=== PATIENT | male | born 1975 | race American Indian/Alaskan Native ===

== ENCOUNTER 2016-08-10 18:55 | Emergency (ER) | payer OTHER ==
[2016-08-10 19:19] VITALS: TEMP 99
[2016-08-10 19:41] VITALS: BP 123/85; PULSE 99; RESP 16; O2SAT 98
[2016-08-10] MEDS ORDERED: Tmp-Smz 800 mg-160 mg DS Tab PO STA (19:44)
--- NOTE | 2016-08-10 19:44 | ED PDOC ---
Arrival/HPI - General Chief Complaint: Abnormal Skin Integrity Time Seen by Provider: 08/10/16 19:44 Historian: Patient - History of Present Illness Narrative History of Present Illness (Text): 08/10/16 19:44 This 41 yo male with pmh DM, presents to this ED c/o chin abscess x 2 days. Patent denies drainage, redness, fever, or ANDREWS. Denies other complains. Time/Duration: Other (2 days) Context: Home Past Medical History - Provider Review Nursing Documentation Reviewed: Yes - Infectious Disease Hx of Infectious Diseases: None - Endocrine/Metabolic Hx Diabetes Mellitus Type 2: Yes - Psychiatric Hx Substance Use: No - Anesthesia Hx Anesthesia: No Hx Anesthesia Reactions: No Hx Malignant Hyperthermia: No Family/Social History - Physician Review Nursing Documentation Reviewed: Yes Family/Social History: No Known Family HX Smoking Status: Never Smoked Hx Alcohol Use: Yes Frequency of alcohol use: Socially Hx Substance Use: No Allergies/Home Meds Allergies/Adverse Reactions: Allergies No Known Allergies Allergy (Verified 08/10/16 19:19) Home Medications: Home Meds Medication Instructions Recorded Confirmed glyBURIDE [Glyburide] 5 mg PO DAILY 08/10/16 08/10/16 Review of Systems - Review of Systems Constitutional: Normal. absent: Fatigue, Weight Change, Fevers Eyes: Normal ENT: Normal Respiratory: Normal Cardiovascular: Normal Gastrointestinal: Normal Genitourinary Male: Normal Musculoskeletal: Normal Skin: Abscess (chin) Neurological: Normal Endocrine: Normal Hemo/Lymphatic: Normal Psychiatric: Normal Physical Exam Vital Signs Temp Pulse Resp BP Pulse Ox 08/10/16 20:13 16 98 08/10/16 19:30 99 H 16 98 08/10/16 19:14 99 F 100 H 20 123/85 100 Temperature: Afebrile Blood Pressure: Normal Pulse: Regular Respiratory Rate: Normal Appearance: Positive for: Well-Appearing, Non-Toxic, Comfortable Pain Distress: None Mental Status: Positive for: Alert and Oriented X 3 - Systems Exam Head: Present: Atraumatic, Normocephalic Pupils: Present: PERRL Extroacular Muscles: Present: EOMI Conjunctiva: Present: Normal Mouth: Present: Moist Mucous Membranes Neck: Present: Normal Range of Motion Respiratory/Chest: Present: Clear to Auscultation, Good Air Exchange. No: Respiratory Distress, Accessory Muscle Use Cardiovascular: Present: Regular Rate and Rhythm, Normal S1, S2. No: Murmurs Abdomen: Present: Normal Bowel Sounds. No: Tenderness, Distention, Peritoneal Signs Back: Present: Normal Inspection Upper Extremity: Present: Normal Inspection. No: Cyanosis, Edema Lower Extremity: Present: Normal Inspection. No: Edema Neurological: Present: GCS=15, CN II-XII Intact, Speech Normal Skin: Present: Warm, Dry, Normal Color, Abscess ((+) pustule like abscess, with mild surrounding erythema. No fluctuance, or drainage. No lymph nodes tenderness). No: Rashes Psychiatric: Present: Alert, Oriented x 3, Normal Insight, Normal Concentration Medical Decision Making ED Course and Treatment: 08/10/16 20:00 Re-evaluation. Patient feels better. Discussed results and plan with patient who expresses understanding. All questions answered and there is agreement with the plan to discharge home with instructions. Patient stable for discharge. Return if symptoms persist or worsen Re-evaluation Time: 20:00 Reassessment Condition: Re-examined, Improved - Medication Orders Current Medication Orders: Discontinued Medications Amoxicillin/Clavulanate Potassium (Augmentin 875 Mg-125 Mg Tab) 1 tab PO STAT STA PRN Reason: Protocol Stop: 08/10/16 19:46 Last Admin: 08/10/16 20:12 Dose: 1 TAB Trimethoprim/Sulfamethoxazole (Bactrim Ds Tab) 1 tab PO STAT STA PRN Reason: Protocol Stop: 08/10/16 19:45 Last Admin: 08/10/16 20:12 Dose: 1 TAB - Procedure PROCEDURE NOTE (Text): 08/10/16 20:11 PROCEDURE: INCISION & DRAINAGE Performed by the emergency provider Indication: Abscess Location: chin Preparation: The area was prepped and draped in the usual sterile fashion and was cleansed with Betadine. Local infiltration of Lidocaine 1% without Epi was used for anesthesia. Procedure: The small pustule abscess was incised with a needle. Approximately trace of purulent material was obtained. A dressing was applied by the RN. Post-Procedure: On exam the abscess is notably less pustule. The patient tolerated the procedure well, and there were no complications. Disposition/Present on Arrival - Present on Arrival Any Indicators Present on Arrival: No History of DVT/PE: No History of Uncontrolled Diabetes: No Urinary Catheter: No History of Decub. Ulcer: No History Surgical Site Infection Following: None - Disposition Have Diagnosis and Disposition been Completed?: Yes Diagnosis: Abscess of chin Disposition: HOME/ ROUTINE Disposition Time: 20:01 Patient Plan: Discharge Condition: GOOD Discharge Instructions (ExitCare): Abscess (ED) Additional Instructions: Call private doctor for follow up visit in 2 days. Continue with warmth compress every 1-2 hours. Take medication as instructed. Return to emergency if symptoms worsen or unable to see your doctor in 2 days. Prescriptions: Amoxicillin/Clavulanate [Augmentin 875 MG-125 MG] 1 tab PO BID #14 tab Sulfamethoxazole/Trimethoprim [Bactrim DS 800 mg-160 mg] 1 tab PO BID #14 tab Referrals: Montana Miller PA [Primary Care Provider] - Follow up with primary Forms: WORK NOTE
[2016-08-10] MEDS ORDERED: Amoxicillin-Clav 875-125 mg Tab PO STA (19:45)
== END 2016-08-10 20:13 | disposition home or self-care (01) ==
LOC: ED 18:55
DX: L02.01 Cutaneous abscess of face (principal)

== ENCOUNTER 2016-08-13 20:33 | Inpatient (IN) | payer OTHER ==
[2016-08-13 20:53] VITALS: BMI 22.7
[2016-08-13] MEDS ORDERED: Sodium Chloride 0.9% 1,000 ML IV STA (21:25)
--- NOTE | 2016-08-13 21:39 | ED PDOC ---
Arrival/HPI <Boubacar Reynolds - Last Filed: 08/13/16 22:17> - General Historian: Patient - History of Present Illness Time/Duration: Other (few days) Symptom Onset: Gradual Symptom Course: Worsening Activities at Onset: Light Context: Home <Judy Blair - Last Filed: 08/13/16 22:51> - General Chief Complaint: Abnormal Skin Integrity Time Seen by Provider: 08/13/16 21:24 - History of Present Illness Narrative History of Present Illness (Text): 08/13/16 21:24 41 year old male, whose past medical history includes NIDDM, who presents to the ED complaining of a worsening chin abscess today. Patient states he was seen in the ED 4 days prior for a chin abscess, discharged home with Bactrim and Augmentin. Patient states he has been taking antibiotics as prescribed but noted today chin abscess has worsened and is now spreading to the right. Patient also reports associated purulent, bloody discharge that started today. Patient states he has been taking Aleve for pain. Patient notes he has been taking his blood sugars regularly at home, highest was 250. Pt states he has been having subjective fevers and chills at home but did not take his temperature. Patient denies any headache, dizziness, neck pain, back pain, nausea, vomiting, diarrhea, urinary symptoms, or any other complaints. (Judy Blair) Past Medical History - Provider Review Nursing Documentation Reviewed: Yes - Travel History Have you recently traveled outside [place] w/in the past 3 mons?: No - Infectious Disease Hx of Infectious Diseases: None - Tetanus Immunization Tetanus Immunization: Unknown - Endocrine/Metabolic Hx Diabetes Mellitus Type 2: Yes - Psychiatric Hx Substance Use: No - Anesthesia Hx Anesthesia: No Hx Anesthesia Reactions: No Hx Malignant Hyperthermia: No <Judy Blair - Last Filed: 08/13/16 22:51> Family/Social History - Physician Review Nursing Documentation Reviewed: Yes Family/Social History: Unknown Family HX Smoking Status: Never Smoked Hx Alcohol Use: Yes Hx Substance Use: No <Judy Blair - Last Filed: 08/13/16 22:51> Allergies/Home Meds <Boubacar Reynolds - Last Filed: 08/13/16 22:17> <Judy Blair - Last Filed: 08/13/16 22:51> Allergies/Adverse Reactions: Allergies No Known Allergies Allergy (Verified 08/10/16 19:19) Home Medications: Home Meds Medication Instructions Recorded Confirmed glyBURIDE [Glyburide] 5 mg PO DAILY 08/10/16 08/10/16 Review of Systems - Physician Review All systems were reviewed & negative as marked: Yes - Review of Systems Constitutional: Fevers, Other (chills) Eyes: Normal ENT: Normal Respiratory: Normal. absent: SOB, Cough Cardiovascular: Normal. absent: Chest Pain Gastrointestinal: Normal. absent: Abdominal Pain, Diarrhea, Nausea, Vomiting Genitourinary Male: Normal. absent: Dysuria, Frequency, Hematuria, Urinary Output Changes Musculoskeletal: Normal. absent: Back Pain, Neck Pain Skin: Abscess (+chin abscess), Cellulitis Neurological: Normal. absent: Headache, Dizziness Endocrine: Normal Hemo/Lymphatic: Normal Psychiatric: Normal <Judy Blair T - Last Filed: 08/13/16 22:51> Physical Exam Vital Signs Reviewed: Yes Temperature: Afebrile Blood Pressure: Normal Pulse: Regular Respiratory Rate: Normal Appearance: Positive for: Well-Appearing, Non-Toxic, Comfortable Pain Distress: None Mental Status: Positive for: Alert and Oriented X 3 - Systems Exam Head: Present: Atraumatic, Normocephalic, Other (there is a large area of tenderness and induration and swelling noted to the chin into the right side of the jaw. there is a small amount of purulent discharge from the inferior aspect of the chin. + edema and induration extending to the right side of the jaw; + erythema; ) Pupils: Present: PERRL Extroacular Muscles: Present: EOMI Conjunctiva: Present: Normal Mouth: Present: Moist Mucous Membranes, Normal Lips (+ swelling to the right side of the lower lip. ), Normal Tounge, Normal Teeth, Other (no elevation of the floor of the mouth; no submandibular tenderness or swelling.). No: Drooling , Trismus Neck: Present: Normal Range of Motion, Trachea Midline Respiratory/Chest: Present: Clear to Auscultation, Good Air Exchange. No: Respiratory Distress, Accessory Muscle Use Cardiovascular: Present: Regular Rate and Rhythm, Normal S1, S2. No: Murmurs Abdomen: Present: Normal Bowel Sounds. No: Tenderness, Distention, Peritoneal Signs Back: Present: Normal Inspection Upper Extremity: Present: Normal Inspection. No: Cyanosis, Edema Lower Extremity: Present: Normal Inspection. No: Edema Neurological: Present: GCS=15, CN II-XII Intact, Speech Normal Skin: Present: Warm, Dry Psychiatric: Present: Alert, Oriented x 3, Normal Insight, Normal Concentration <Judy Blair Livan - Last Filed: 08/13/16 22:51> Vital Signs Temp Pulse Resp BP Pulse Ox 08/13/16 20:56 99 F 104 H 18 143/93 H 98 Medical Decision Making <Boubacar Reynolds - Last Filed: 08/13/16 22:17> - Lab Interpretations I have reviewed the lab results: Yes <Judy Blair - Last Filed: 08/13/16 22:51> ED Course and Treatment: 08/13/16 21:24 Impression: 41 year old male with a worsening chin abscess. Plan: -- Labs, blood cultures -- IV fluids -- Reassess and disposition Prior Visits: Notes and results from previous visits were reviewed. 08/13/16 22:37 CBC: Within normal limits CMP glucose 393 normal saline IV bolus given Blood cultures pending Vancomycin and Zosyn ordered IV case discussed with dr. perez; accepts admission case discussed with dr. hopkins; surgery resident who will see patient at bedside. pt admitted to med/surg for cellulitis/abscess of face with hyperglycemia, failure of outpatient abx. impression; cellulitis, abscess, hyperglycemia. admit to med/surg (Judy Blair) - Lab Interpretations Lab Results: 08/13/16 21:36 08/13/16 21:36 Lab Results 08/13/16 21:36: WBC 9.9, RBC 5.31, Hgb 14.7, Hct 42.5, MCV 80.0, MCH 27.7, MCHC 34.6, RDW 12.0, Plt Count 238, MPV 10.6, Gran % 72.0 H, Lymph % (Auto) 20.1 L, [place] % (Auto) 7.2 H, Eos % (Auto) 0.6 L, Baso % (Auto) 0.1, Gran # 7.13 H, Lymph # 2.0, [place] # 0.7 H, Eos # 0.1, Baso # 0.01, Sodium 133, Potassium 4.2, Chloride 91 L, Carbon Dioxide 29, Anion Gap 17, BUN 12, Creatinine 1.0, Est GFR ( Amer) > 60, Est GFR (Non-Af Amer) > 60, Random Glucose 393 H*, Calcium 9.6, Total Bilirubin 1.0, AST 44, ALT 75 H, Alkaline Phosphatase 188 H, Total Protein 9.0 H, Albumin 4.3, Globulin 4.8, Albumin/Globulin Ratio 0.9 L - Medication Orders Current Medication Orders: Sodium Chloride (Sodium Chloride 0.9%) 1,000 mls @ 999 mls/hr IV .Q1H1M STA Stop: 08/13/16 22:25 Last Admin: 08/13/16 21:42 Dose: 999 MLS/HR eMAR Start Stop Document 08/13/16 21:42 HI (Rec: 08/13/16 21:42 [id number]) Intravenous Solution Start Date 08/13/16 Start Time 21:42 Piperacillin Sod/Tazobactam Sod (Zosyn 3.375 In Ns 100ml) 100 mls @ 200 mls/hr IVPB STAT STA PRN Reason: Protocol Stop: 08/13/16 22:37 Last Admin: 08/13/16 22:18 Dose: 200 MLS/HR eMAR Start Stop Document 08/13/16 22:18 HI (Rec: 08/13/16 22:18 [id number]) Intravenous Solution Start Date 08/13/16 Start Time 22:18 Vancomycin HCl (Vancomycin 1gm) 250 mls @ 167 mls/hr IVPB STAT STA PRN Reason: Protocol Stop: 08/13/16 23:37 - PA / [employer]PERATOR HELPER / Resident Statement ALY has reviewed & agrees with the documentation as recorded. ALY has examined the patient and agrees with the treatment plan. <Boubacar Reynolds - Last Filed: 08/13/16 22:17> - Scribe Statement The provider has reviewed the documentation as recorded by the Scribe <Judy Blair - Last Filed: 08/13/16 22:51> - Scribe Statement Ainsley Alba All medical record entries made by the Scribe were at my direction and personally dictated by me. I have reviewed the chart and agree that the record accurately reflects my personal performance of the history, physical exam, medical decision making, and the department course for this patient. I have also personally directed, reviewed, and agree with the discharge instructions and disposition. (Judy Blair) Disposition/Present on Arrival <Boubacar Reynolds - Last Filed: 08/13/16 22:17> - Present on Arrival Any Indicators Present on Arrival: No History of DVT/PE: No History of Uncontrolled Diabetes: No Urinary Catheter: No History of Decub. Ulcer: No History Surgical Site Infection Following: None - Disposition Have Diagnosis and Disposition been Completed?: Yes Disposition Time: 22:34 Patient Plan: Admission <Judy Blair - Last Filed: 08/13/16 22:51> - Disposition Diagnosis: Abscess, Cellulitis Disposition: HOSPITALIZED Condition: FAIR Discharge Instructions (ExitCare): Cellulitis (ED)
[2016-08-13 21:48] LABS: ADD MANUAL DIFF? NO
[2016-08-13 22:04] LABS: ALB/GLOB RATIO 0.9 (1.1-1.8); ALKALINE PHOSPHATASE 188 U/L (38-133); ALT/SGPT 75 U/L (7-56); AST/SGOT 44 U/L (15-59); BLOOD UREA NITROGEN 12 mg/dL (7-21); CALCIUM 9.6 mg/dL (8.4-10.5); CARBON DIOXIDE 29 mmol/L (21-33); CHLORIDE 91 mmol/L (98-107); GFR AFRICAN-AMERICAN > 60; POTASSIUM 4.2 mmol/L (3.6-5.0); SODIUM 133 mmol/L (132-148)
[2016-08-13 22:07] LABS: GLUCOSE,RANDOM 393 mg/dL (70-110)
[2016-08-13] MEDS ORDERED: Vancomycin 1gm in NS 250ml 250 ML IVPB STA (22:08)
[2016-08-13] MEDS ORDERED: Piperacillin/Tazobact 3.375 gm 100 ML IVPB STA (22:08)
[2016-08-13 22:17] LABS: BASO # 0.01 K/mm3 (0.0-2.0); BASO % 0.1 % (0.0-3.0); EOS # 0.1 (0.0-0.7); EOS % 0.6 % (1.5-5.0); GRAN # 7.13 (1.4-6.5); HEMATOCRIT 42.5 % (42.0-52.0); LYMPH % 20.1 % (22.0-35.0); MEAN CORPUSCULAR HEMOGLOBIN 27.7 pg (25.0-35.0); MEAN CORPUSCULAR HGB CONC 34.6 g/dl (31.0-37.0); MEAN PLATELET VOLUME 10.6 fl (7.0-11.0); MONO # 0.7 (0.1-0.6); MONO % 7.2 % (1.0-6.0); PLATELET COUNT 238 10^3/uL (120.0-450.0); WHITE BLOOD COUNT 9.9 10^3/ul (4.5-11.0)
--- NOTE | 2016-08-14 00:10 | CP.PCM.CON ---
History of Present Illness - History of Present Illness History of Present Illness: General Surgery consult note for Dr. Vail Consult for: chin abscess Pt is a 41 M with PMH of DM2 currently poorly controlled who presents with worsening abscess of his chin. Pt first noticed swelling and pain on his chin 4- 5 days ago which gradually worsened until his skin became indurated and the pain became unbearable. He came to the ED 3 days ago and had a trace amount of purulent fluid needle aspirated and was discharged with PO Bactrim and augmentin. Patient says that the first day he only took 1 dose of each instead of the BID dose, but when he realized his mistake he took the BID dose for the past two days. Patient states that he has some sero-purulent drainage out of the needle aspiration site, but that the pain and swelling have worsened, with areas of swelling and pain spreading to the right of his face and up to his bottom lip and on the inside of his bottom lip. Patient denies any drainage from these other areas of swelling, any pain or swelling on the bottom of his mouth or in his throat, any difficulties breathing, or neck swelling. Patient states that he has felt warm at home with occasional chills but did not take his temperature. Denies any numbness or tingling anywhere, any difficulty moving his mouth or face, any shooting pains along his jaw, nausea, vomiting, chest pain, or SOB. Reports intermittent dull, unilateral headaches over the past few weeks, chronic poor vision secondary to diabetes, increased nocturia, intermittent cough at night, sinus congesion, and chronic diarrhea, though lately he has been constipated. Patient reports that 2 weeks ago he had a similar area of swelling and pain more laterally on his right jaw that resolved when he popped it on his own. 3 weeks ago patient had extensive dental work done with multiple filling placed in the lower teeth BL. Patient does not record his blood sugars at home and has an appointment with Dr. Fatmata Miller for a pump to control his blood sugars more closely. Afebrile, tachycardic with HR 104 WBC: wnl PMH: DM PSH: none All: NKDA Social: denies tobacco use, ETOH: 1 beer per night, denies drug use Review of Systems - Review of Systems All systems: reviewed and no additional remarkable complaints except - Constitutional Constitutional: As Per HPI - EENT Eyes: As Per HPI Ears: Decreased Hearing (chronic). absent: Ear Discharge, Disequilibrium Nose/Mouth/Throat: As Per HPI, Post Nasal Drip - Cardiovascular Cardiovascular: absent: Chest Pain, Irregular Heart Rhythm, Leg Edema, Palpitations - Respiratory Respiratory: As Per HPI. absent: Dyspnea, Dyspnea on Exertion - Gastrointestinal Gastrointestinal: As Per HPI - Genitourinary Genitourinary: As Per HPI, Nocturia. absent: Dysuria, Hematuria - Musculoskeletal Musculoskeletal: absent: Muscle Weakness, Numbness, Tingling - Integumentary Integumentary: As Per HPI - Neurological Neurological: As Per HPI Past Patient History - Infectious Disease Hx of Infectious Diseases: None - Tetanus Immunizations Tetanus Immunization: Unknown - Past Medical History & Family History Past Medical History?: Yes Past Family History: Reviewed and not pertinent - Past Social History Smoking Status: Never Smoked Alcohol: < 2 Drinks/Day (1 beer/PM) Drugs: Denies - ENDOCRINE/METABOLIC Hx Diabetes Mellitus Type 2: Yes - PSYCHIATRIC Hx Substance Use: No - ANESTHESIA Hx Anesthesia: No Hx Anesthesia Reactions: No Hx Malignant Hyperthermia: No Meds Allergies/Adverse Reactions: Allergies Allergy/AdvReac Type Severity Reaction Status Date / Time No Known Allergies Allergy Verified 08/10/16 19:19 Physical Exam - Constitutional Appears: Well, Non-toxic, No Acute Distress - Head Exam Head Exam: ATRAUMATIC, NORMOCEPHALIC - Eye Exam Eye Exam: EOMI, Normal appearance, PERRL Pupil Exam: NORMAL ACCOMODATION, PERRL - ENT Exam ENT Exam: Mucous Membranes Moist. absent: Normal Oropharynx (internal lower lip and extrenal gums on the right side of the lower jaw swollen, edematous, and boggy. No expressible drainage) - Neck Exam Neck exam: Positive for: Full Rom. Negative for: Lymphadenopathy Additional comments: No subglottal swelling, bogginess, or tenderness - Respiratory Exam Respiratory Exam: Clear to Auscultation Bilateral, NORMAL BREATHING PATTERN. absent: Accessory Muscle Use, Respiratory Distress - Cardiovascular Exam Cardiovascular Exam: RRR, +S1, +S2. absent: Systolic Murmur - GI/Abdominal Exam GI & Abdominal Exam: Soft. absent: Distended, Tenderness - Extremities Exam Extremities exam: Negative for: calf tenderness, pedal edema, tenderness - Back Exam Back exam: NORMAL INSPECTION - Neurological Exam Neurological exam: Alert, CN II-XII Intact, Oriented x3 - Psychiatric Exam Psychiatric exam: Normal Affect, Normal Mood - Skin Skin Exam: Dry, Warm Additional comments: central chin with area of induration extending to the right lateral border of the mouth and to the lower lip superiorly. Small puncture in the center of the chin induration with small amount expressible sanguo-purulent fluid, tender to the touch. Results - Vital Signs Recent Vital Signs: Last Vital Signs Temp 99 F 08/13/16 20:56 Pulse 94 H 08/13/16 22:55 Resp 16 08/13/16 22:55 BP 152/53 H 08/13/16 22:55 Pulse Ox 100 08/13/16 22:55 - Labs Result Diagrams: 08/13/16 21:36 08/13/16 21:36 Assessment & Plan - Assessment and Plan (Free Text) Assessment: 41 M with uncontrolled DM with abscess an possible carbuncle of the chin and right lower face/lip afebrile, tachycardic WBC wnl Blood glucose 393 Plan - No indication for emergent surgery at this time - f/u AM labs - IV vancomycin - NPO past midnight - pain control - IVF - Management per primary team - Further recs per Dr. Yared Kaur, PGY1
--- NOTE | 2016-08-14 01:05 | CP.PCM.PN ---
Subjective - Date & Time of Evaluation Date of Evaluation: 08/14/16 Time of Evaluation: 01:35 - Subjective Subjective: s:Nurse calls with finger stick reading of 265 mg %. Patient was seen at bedside. Complains of no bowel movement for 3 days . No other complaints. Denies blurry vision, stomach pain, palpitation, sweating , paraesthesia. He is NPO for possible drainage of abescess. Pertinent medical record was reviewed. O: Last Vital Signs 3 Temp 99 F 08/13/16 20:56 Pulse 94 H 08/13/16 22:55 Resp 18 08/13/16 23:20 BP 152/53 H 08/13/16 22:55 Pulse Ox 100 08/13/16 22:55 Awake, alert, not in distress. LUNGS:Normal breathing patten. NEURO:Speech normal. A:Hyperglycemia. P:Monitor. Objective - Vital Signs/Intake and Output Vital Signs (last 24 hours): Temp Pulse Resp BP Pulse Ox 99 F 94 H 18 152/53 H 100 08/13/16 20:56 08/13/16 22:55 08/13/16 23:20 08/13/16 22:55 08/13/16 22:55 - Medications Medications: Current Medications Vancomycin HCl (Vancomycin 1gm) 250 mls @ 167 mls/hr IVPB Q12H DAMARIS PRN Reason: Protocol
[2016-08-14] MEDS ORDERED: Sodium Chloride 0.9% 100 ML IV SCH (01:30)
[2016-08-14] MEDS: Vancomycin 1gm in NS 250ml 250 ML IVPB SCH ×2 (08:00→21:53)
--- NOTE | 2016-08-14 09:54 | CP.PCM.HP ---
History of Present Illness - History of Present Illness History of Present Illness: CC: Swelling and Pain on the Chin History of Present Illness: A 41yoM with H/O Uncontrolled DMII with Last HgA1C 13 noticed swelling to the chin and was started on Antibiotics for Cellulitis. The swelling worsened and started draining p[us when he came to the ER where he was started on IV Antibiotics and admission initiated. Pain to the chin 8/10 max and associated chills and mild degree fever. Sates he is compliant to his medication. Present on Admission - Present on Admission Any Indicators Present on Admission: Yes History of DVT/PE: No History of Uncontrolled Diabetes: Yes Urinary Catheter: No Decubitus Ulcer Present: No Review of Systems - Review of Systems All systems: reviewed and no additional remarkable complaints except - Constitutional Constitutional: Chills, Fever Past Patient History - Infectious Disease Hx of Infectious Diseases: None - Tetanus Immunizations Tetanus Immunization: Unknown - Past Medical History & Family History Past Medical History?: Yes Past Family History: Reviewed and not pertinent - Past Social History Smoking Status: Never Smoked Alcohol: < 2 Drinks/Day (1 beer/PM) Drugs: Denies - ENDOCRINE/METABOLIC Hx Diabetes Mellitus Type 2: Yes (Uncontrolled) - MUSCULOSKELETAL/RHEUMATOLOGICAL Hx Falls: No - PSYCHIATRIC Hx Substance Use: No - ANESTHESIA Hx Anesthesia: No Hx Anesthesia Reactions: No Hx Malignant Hyperthermia: No Meds Allergies/Adverse Reactions: Allergies Allergy/AdvReac Type Severity Reaction Status Date / Time No Known Allergies Allergy Verified 08/10/16 19:19 Physical Exam - Constitutional Appears: Well, No Acute Distress - Head Exam Head Exam: ATRAUMATIC, NORMAL INSPECTION, NORMOCEPHALIC Additional comments: +Fluctuating swelling with pus draining tangela pus. - Eye Exam Eye Exam: EOMI, Normal appearance, PERRL Pupil Exam: NORMAL ACCOMODATION, PERRL - ENT Exam ENT Exam: Mucous Membranes Moist, Normal Exam - Neck Exam Neck exam: Positive for: Full Rom, Normal Inspection - Respiratory Exam Respiratory Exam: Clear to Auscultation Bilateral, NORMAL BREATHING PATTERN - Cardiovascular Exam Cardiovascular Exam: REGULAR RHYTHM, +S1, +S2 - GI/Abdominal Exam GI & Abdominal Exam: Normal Bowel Sounds, Soft. absent: Tenderness - Extremities Exam Extremities exam: Positive for: full ROM, normal capillary refill, normal inspection - Back Exam Back exam: NORMAL INSPECTION. absent: CVA tenderness (L), CVA tenderness (R), tenderness - Neurological Exam Neurological exam: Alert, CN II-XII Intact, Normal Gait, Oriented x3, Reflexes Normal - Psychiatric Exam Psychiatric exam: Normal Affect, Normal Mood - Skin Skin Exam: Dry, Intact, Normal Color, Warm Results - Vital Signs Recent Vital Signs: Last Vital Signs Temp 98 F 08/14/16 08:28 Pulse 82 08/14/16 08:28 Resp 19 08/14/16 08:28 BP 117/73 08/14/16 08:28 Pulse Ox 98 08/14/16 08:28 - Labs Result Diagrams: 08/13/16 21:36 08/13/16 21:36 Labs: Laboratory Results - last 24 hr 08/14/16 00:47 POC Glucose (mg/dL) 265 H Assessment & Plan (1) Abscess of chin Assessment and Plan: R/O Osteomyelitis Failed outpatient Treatment IV Vancomycin and Zosyn Pain Management Wound and Blood Cultures Sed Rate Surgery and ID Consulted NPO for the I&D. Status: Acute (2) Diabetes mellitus with hyperglycemia Assessment and Plan: Accu-check with Coverage HgA1C PO medication Pos Procedure Status: Acute
[2016-08-14] MEDS ORDERED: Lidocaine 1% Inj (20ml) IJ STA (10:19)
[2016-08-14 10:46] LABS: BLOOD UREA NITROGEN 9 mg/dL (7-21); CALCIUM 8.9 mg/dL (8.4-10.5); CARBON DIOXIDE 28 mmol/L (21-33); CHLORIDE 99 mmol/L (95-110); GFR AFRICAN-AMERICAN > 60; GLUCOSE,RANDOM 268 mg/dL (70-110); POTASSIUM 4.4 mmol/L (3.6-5.0); SODIUM 136 mmol/L (132-148)
[2016-08-14] MEDS ORDERED: Oxycodone/Acetaminophen 5/325 mg Tab PO PRN (11:01)
[2016-08-14] MEDS ORDERED: HYDROmorphone 0.5 mg/0.5 ml ISec IVP STA (11:01)
[2016-08-14] MEDS: Insulin Lispro 1 UNITS/0.01 ML SC SCH ×2 (12:24→17:21)
[2016-08-14] MEDS: Piperacillin/Tazobact 3.375 gm 100 ML IVPB SCH ×2 (12:36→17:22)
[2016-08-14] MEDS ORDERED: Gadodiamide 287 MG/ML VIAL (15ML) IV ONE (18:46)
--- NOTE | 2016-08-14 20:07 | CP.PCM.CON ---
History of Present Illness - History of Present Illness History of Present Illness: Infectious Disease Consultation: August 14, 2016 41 yo male with recent visit to the ER for abscess in his chin. Needle aspiration of the area on initial ER visit. He received PO Bactrim and Augmentin for treatment. The patient has been on antibiotics over two days but the patient experienced more pain and tenderness of the area since needle aspiration. The patient has multiple medical issues including DM and various issues to the jaw with recent dental work performed. The patient stated that he still had drainage for mucopurulent drainage from site with needle aspiration. Currently on Vancomcyin. No previous cultures from initial hospitalization or previous ER visits. PMHx: Diabetes Mellitus PSHx: none given Allergies: NKDA Social Hx: No tobacco, EtOH 1 beer daily, no illicit drug use. Active Medications Glyburide (Micronase) 5 mg PO DAILY [facility] Vancomycin HCl (Vancomycin 1gm) 250 mls @ 167 mls/hr IVPB Q12H [facility] PRN Reason: Protocol Last Admin: 08/14/16 08:00 Dose: 167 mls/hr Sodium Chloride (Sodium Chloride 0.9%) 100 mls @ 100 mls/hr IV .Q1H [facility] Insulin Human Lispro (Humalog) 0 units SC Q6 [facility] PRN Reason: Protocol Last Admin: 08/14/16 17:21 Dose: 3 units Metformin HCl (Glucophage) 500 mg PO BID [facility] Last Admin: 08/14/16 17:21 Dose: 500 mg Oxycodone/Acetaminophen (Percocet 5/325 Mg Tab) 1 tab PO Q6H PRN PRN Reason: Pain, moderate (4-7) Stop: 08/17/16 11:02 Last Admin: 08/14/16 17:29 Dose: 1 tab Pantoprazole Sodium (Protonix Inj) 40 mg IVP DAILY [facility] Last Admin: 08/14/16 10:00 Dose: 40 mg Family Hx: none given ROS: No fevers, nausea, vomiting, diarrhea, headaches, dizziness, chest pain, abdominal pain, melena, hematuria, hematemesis, hematochezia, depression, anxiety. Past Patient History - Infectious Disease Hx of Infectious Diseases: None - Tetanus Immunizations Tetanus Immunization: Unknown - Past Medical History & Family History Past Medical History?: Yes Past Family History: Reviewed and not pertinent - Past Social History Smoking Status: Never Smoked Alcohol: < 2 Drinks/Day (1 beer/PM) Drugs: Denies - ENDOCRINE/METABOLIC Hx Diabetes Mellitus Type 2: Yes (Uncontrolled) - MUSCULOSKELETAL/RHEUMATOLOGICAL Hx Falls: No - PSYCHIATRIC Hx Substance Use: No - ANESTHESIA Hx Anesthesia: No Hx Anesthesia Reactions: No Hx Malignant Hyperthermia: No Meds Allergies/Adverse Reactions: Allergies Allergy/AdvReac Type Severity Reaction Status Date / Time No Known Allergies Allergy Verified 08/10/16 19:19 - Medications Medications: Current Medications Glyburide (Micronase) 5 mg PO DAILY [facility] Vancomycin HCl (Vancomycin 1gm) 250 mls @ 167 mls/hr IVPB Q12H [facility] PRN Reason: Protocol Last Admin: 08/14/16 08:00 Dose: 167 mls/hr Sodium Chloride (Sodium Chloride 0.9%) 100 mls @ 100 mls/hr IV .Q1H [facility] Insulin Human Lispro (Humalog) 0 units SC Q6 [facility] PRN Reason: Protocol Last Admin: 08/14/16 17:21 Dose: 3 units Metformin HCl (Glucophage) 500 mg PO BID [facility] Last Admin: 08/14/16 17:21 Dose: 500 mg Oxycodone/Acetaminophen (Percocet 5/325 Mg Tab) 1 tab PO Q6H PRN PRN Reason: Pain, moderate (4-7) Stop: 08/17/16 11:02 Last Admin: 08/14/16 17:29 Dose: 1 tab Pantoprazole Sodium (Protonix Inj) 40 mg IVP DAILY [facility] Last Admin: 08/14/16 10:00 Dose: 40 mg Physical Exam - Constitutional Appears: Non-toxic, No Acute Distress - Head Exam Head Exam: ATRAUMATIC, NORMOCEPHALIC - Eye Exam Eye Exam: EOMI, PERRL Pupil Exam: NORMAL ACCOMODATION, PERRL - ENT Exam ENT Exam: Mucous Membranes Moist, Normal External Ear Exam, TM's Normal Bilaterally Additional comments: internal lower lip and extrenal gums on the right side of the lower jaw swollen , edematous, and boggy. No expressible drainage - Neck Exam Neck exam: Positive for: Full Rom, Normal Inspection - Respiratory Exam Respiratory Exam: Clear to Auscultation Bilateral, NORMAL BREATHING PATTERN. absent: Rales, Rhonchi, Wheezes - Cardiovascular Exam Cardiovascular Exam: REGULAR RHYTHM, RRR, +S1, +S2 - GI/Abdominal Exam GI & Abdominal Exam: Normal Bowel Sounds, Soft. absent: Distended, Tenderness - Extremities Exam Extremities exam: Positive for: full ROM, normal inspection - Neurological Exam Neurological exam: Alert, CN II-XII Intact, Oriented x3 - Psychiatric Exam Psychiatric exam: Normal Affect, Normal Mood - Skin Skin Exam: Dry, Warm Additional comments: central chin with area of induration extending to the right lateral border of the mouth and to the lower lip superiorly. Small puncture in the center of the chin induration with small amount expressible sanguo-purulent fluid, tender to the touch. Results - Vital Signs Recent Vital Signs: Last Vital Signs Temp 98.4 F 08/14/16 16:00 Pulse 86 08/14/16 16:00 Resp 18 08/14/16 16:00 BP 143/94 H 08/14/16 16:00 Pulse Ox 99 08/14/16 16:00 - Labs Result Diagrams: 08/13/16 21:36 08/14/16 10:30 Labs: Laboratory Results - last 24 hr 08/14/16 08/14/16 08/14/16 00:47 10:30 12:08 ESR 33 H Sodium 136 Potassium 4.4 Chloride 99 Carbon Dioxide 28 Anion Gap 13 BUN 9 Creatinine 0.9 Est GFR ( Amer) > 60 Est GFR (Non-Af Amer) > 60 POC Glucose (mg/dL) 265 H 243 H Random Glucose 268 H Hemoglobin A1c 12.9 H Calcium 8.9 08/14/16 16:19 ESR Sodium Potassium Chloride Carbon Dioxide Anion Gap BUN Creatinine Est GFR ( Amer) Est GFR (Non-Af Amer) POC Glucose (mg/dL) 247 H Random Glucose Hemoglobin A1c Calcium Assessment & Plan - Assessment and Plan (Free Text) Assessment: 41 yo male with uncontrolled DM with carbuncle of the right lower face and chin and possible abscess. MRI of the face is pending. Was on oral Augmentin and Bactrim for at least two days. Currently on Vancomycin IV for antibiotic treatment. This will cover for MRSA and most gram positive infections. Cultures of the drainage were sent for evaluation. If the patient is not showing improvement by tomorrow, will resume a PCN or Cephalosporin base of Zosyn or Cefepime at that time. Will continue on Vancomycin IV alone overnight and await culture results for now. Supportive care and local wound care. Thank you for allowing me to participate in the care of this patient, we will follow with you.
[2016-08-15] MEDS: Piperacillin/Tazobact 3.375 gm 100 ML IVPB SCH ×4 (01:00→17:35)
[2016-08-15] MEDS: Insulin Lispro 1 UNITS/0.01 ML SC SCH ×5 (05:38→22:01)
[2016-08-15 07:44] LABS: ADD MANUAL DIFF? NO
[2016-08-15 07:51] LABS: BASO # 0.01 K/mm3 (0.0-2.0); BASO % 0.1 % (0.0-3.0); EOS # 0.2 (0.0-0.7); EOS % 1.8 % (1.5-5.0); GRAN # 5.11 (1.4-6.5); GRAN % 62.4 % (50.0-68.0); HEMATOCRIT 38.3 % (42.0-52.0); LYMPH # 2.1 (1.2-3.4); LYMPH % 25.8 % (22.0-35.0); MEAN CELL VOLUME 80.6 fL (80.0-105.0); MEAN CORPUSCULAR HEMOGLOBIN 26.9 pg (25.0-35.0); MEAN CORPUSCULAR HGB CONC 33.4 g/dl (31.0-37.0); MEAN PLATELET VOLUME 10.2 fl (7.0-11.0); MONO # 0.8 (0.1-0.6); MONO % 9.9 % (1.0-6.0); PLATELET COUNT 236 10^3/uL (120.0-450.0); WHITE BLOOD COUNT 8.2 10^3/ul (4.5-11.0)
[2016-08-15] MEDS: Vancomycin 1gm in NS 250ml 250 ML IVPB SCH ×2 (08:12→22:01)
[2016-08-15] MEDS: Pantoprazole 40 mg EC Tab PO SCH (08:13)
[2016-08-15 08:20] LABS: ALB/GLOB RATIO 0.8 (1.1-1.8); ALKALINE PHOSPHATASE 144 U/L (38-133); ALT/SGPT 44 U/L (7-56); AST/SGOT 29 U/L (15-59); BILIRUBIN,TOTAL 0.9 mg/dL (0.2-1.3); BLOOD UREA NITROGEN 10 mg/dL (7-21); CALCIUM 8.9 mg/dL (8.4-10.5); CARBON DIOXIDE 29 mmol/L (21-33); CHLORIDE 99 mmol/L (95-110); CHOLESTEROL 163 mg/dL (130-200); GFR AFRICAN-AMERICAN > 60; GLUCOSE,RANDOM 274 mg/dL (70-110); POTASSIUM 4.2 mmol/L (3.6-5.0); SODIUM 135 mmol/L (132-148); TOTAL PROTEIN 7.6 g/dL (5.8-8.3)
[2016-08-15 10:33] LABS: ERYTHROCYTE SEDIMENTATION RATE 53 mm/hr (0.0-15.0)
--- NOTE | 2016-08-15 13:25 | CP.PCM.PN ---
Subjective - Date & Time of Evaluation Date of Evaluation: 08/15/16 Time of Evaluation: 07:00 - Subjective Subjective: Surgery Progress note. Dr. Vail Pt seen and examined at bedside. No acute events overnight. No F/C. No Abd pain. No N/V/D. Pain well controlled with PO pain meds. Still c/o tooth pain. Objective - Vital Signs/Intake and Output Vital Signs (last 24 hours): Temp Pulse Resp BP Pulse Ox 98.0 F 80 19 106/68 98 08/15/16 06:00 08/15/16 06:00 08/15/16 06:00 08/15/16 06:00 08/15/16 06:00 Intake and Output: 08/15/16 08/15/16 06:59 18:59 Intake Total 780 Output Total 0 Balance 780 - Medications Medications: Current Medications Glyburide (Micronase) 5 mg PO BRK [facility] Last Admin: 08/15/16 08:13 Dose: 5 mg Vancomycin HCl (Vancomycin 1gm) 250 mls @ 167 mls/hr IVPB Q12H [facility] PRN Reason: Protocol Last Admin: 08/15/16 08:12 Dose: 167 mls/hr Piperacillin Sod/Tazobactam Sod (Zosyn 3.375 In Ns 100ml) 100 mls @ 200 mls/hr IVPB Q6 [facility] PRN Reason: Protocol Stop: 08/20/16 23:59 Last Admin: 08/15/16 12:27 Dose: 200 mls/hr Insulin Human Lispro (Humalog) 0 units SC Q6 [facility] PRN Reason: Protocol Last Admin: 08/15/16 12:28 Dose: 5 units Metformin HCl (Glucophage) 500 mg PO BID [facility] Last Admin: 08/15/16 09:44 Dose: 500 mg Oxycodone/Acetaminophen (Percocet 5/325 Mg Tab) 1 tab PO Q6H PRN PRN Reason: Pain, moderate (4-7) Stop: 08/17/16 11:02 Last Admin: 08/14/16 17:29 Dose: 1 tab Pantoprazole Sodium (Protonix Ec Tab) 40 mg PO ACB [facility] Last Admin: 08/15/16 08:13 Dose: 40 mg - Labs Labs: 08/15/16 07:00 08/15/16 07:00 - Constitutional Appears: Well, No Acute Distress - Head Exam Head Exam: ATRAUMATIC, NORMAL INSPECTION, NORMOCEPHALIC - Eye Exam Eye Exam: EOMI, Normal appearance, PERRL Pupil Exam: PERRL - ENT Exam ENT Exam: Mucous Membranes Moist Additional comments: Right lower gingival abscess. No drainage - Respiratory Exam Respiratory Exam: NORMAL BREATHING PATTERN - Cardiovascular Exam Cardiovascular Exam: RRR. absent: JVD - GI/Abdominal Exam GI & Abdominal Exam: Soft. absent: Tenderness - Neurological Exam Neurological Exam: Alert, Awake, Oriented x3 - Skin Additional comments: Chin abscess with packing intact. paper cup machine tender to palpation. Bandange changed, clean, dry and intact. Assessment and Plan - Assessment and Plan (Free Text) Assessment: 41yo M with PMHx of uncontrolled DM here with Abscess to the chin. S/p Bedside I &D on 08/14. - Afebrile, no leukocytosis - HbA1c 12.9, management as per Primary - Prelim Wound cultures: Staph Aureus, Gram Negative Aj. Awaiting sensitivities - Continue Abx: Vanc Zosyn. - Infectious Disease consult and recs appreciated - Pain control - f/u Face MRI to r/o Osteo. - CRP pending - Recommend Oral Surgery Eval for possible tracking of abscess. - Dressing changes with dry gauze as needed Discussed case with Dr. Yared Mota PGY1 Surgery Pager: [phone]
--- NOTE | 2016-08-15 15:19 | MRI ---
PROCEDURE: MRI NECK WITH AND WITHOUT CONTRAST HISTORY: chin abscess/Gingival pain/ r/o osteo/tracking COMPARISON: None. TECHNIQUE: Multiplanar multisequence MR images of the neck were obtained with and without gadolinium enhancement. FINDINGS: NASOPHARYNX: Within normal limits. SUPRAHYOID NECK: There is no mass or abnormal enhancement in the oropharynx, oral cavity, parapharyngeal space and retropharyngeal space. INFRAHYOID NECK: There is no mass or abnormal enhancement in the larynx, hypopharynx, and supraglottic space. Vocal cords intact. MASS: Anterior to the right mandible with extensive surrounding and GLANDS: Parotid and submandibular glands unremarkable. Normal size thyroid gland, without nodule. LYMPH NODES: There are enlarged submental and submandibular lymph nodes. VASCULAR STRUCTURES: Unremarkable. ENHANCEMENT: There is a 2.2 x 1.1 cm rim enhancing T1 hypointense and T2 hyperintense lobular lesion anterior to the right mandible with surrounding extensive enhancing soft tissue and subcutaneous edema. Abnormal enhancing soft tissue is also extends superiorly to the right maxillary alveolus. There is no evidence of abnormal signal in the mandible or maxilla. OTHER FINDINGS: Multilevel degenerative changes in the cervical spine with [id number] spinal canal stenosis or neural or neural foraminal stenosis, worse at C5-6 with severe right neural foraminal stenosis and cord compression. IMPRESSION: Right facial abscess anterior to the mandible without definite evidence of osteomyelitis. Also noted is phlegmonous tissue anterior to the mandible and extending cranially to the maxilla. Reactive level 1 and level 2 lymphadenopathy. Multilevel degenerative changes in the cervical spine with ifukkuhh-lu-xzxhce spinal canal stenosis, worse at C5-6 with severe right neural foraminal stenosis and probable cord compression. Dedicated MRI of the cervical spine would be helpful for further evaluation. A preliminary report was provided by [employer] [facility].
--- NOTE | 2016-08-15 17:36 | CP.PCM.PN ---
Subjective - Date & Time of Evaluation Date of Evaluation: 08/15/16 Time of Evaluation: 15:30 - Subjective Subjective: Infectious Disease Follow Up: August 15, 2016 41 yo male with recent visit to the ER for abscess in his chin. Needle aspiration of the area on initial ER visit. He received PO Bactrim and Augmentin for treatment. The patient has been on antibiotics over two days but the patient experienced more pain and tenderness of the area since needle aspiration. The patient has multiple medical issues including DM and various issues to the jaw with recent dental work performed. The patient stated that he still had drainage for mucopurulent drainage from site with needle aspiration. Currently on Vancomcyin. No previous cultures from initial hospitalization or previous ER visits. Official CT reading is showing right facial abscess anterior to mandible with definite evidence of osteomyelitis. In addition, study showing phlegmonous tissue anterior to the mandible and extending cranially to maxilla. Reactive level 1 and 2 lymphadenopathy. 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 Objective - Vital Signs/Intake and Output Vital Signs (last 24 hours): Temp Pulse Resp BP Pulse Ox 97.4 F L 74 18 123/85 97 08/15/16 16:00 08/15/16 16:00 08/15/16 16:00 08/15/16 16:00 08/15/16 16:00 Intake and Output: 08/15/16 08/15/16 06:59 18:59 Intake Total 780 800 Output Total 0 Balance 780 800 - Medications Medications: Current Medications Glyburide (Micronase) 5 mg PO BRK [facility] Last Admin: 08/15/16 08:13 Dose: 5 mg Vancomycin HCl (Vancomycin 1gm) 250 mls @ 167 mls/hr IVPB Q12H [facility] PRN Reason: Protocol Last Admin: 08/15/16 08:12 Dose: 167 mls/hr Piperacillin Sod/Tazobactam Sod (Zosyn 3.375 In Ns 100ml) 100 mls @ 200 mls/hr IVPB Q6 [facility] PRN Reason: Protocol Stop: 08/20/16 23:59 Last Admin: 08/15/16 12:27 Dose: 200 mls/hr Insulin Human Lispro (Humalog) 0 units SC ACHS [facility] PRN Reason: Protocol Metformin HCl (Glucophage) 500 mg PO BID [facility] Last Admin: 08/15/16 09:44 Dose: 500 mg Oxycodone/Acetaminophen (Percocet 5/325 Mg Tab) 1 tab PO Q6H PRN PRN Reason: Pain, moderate (4-7) Stop: 08/17/16 11:02 Last Admin: 08/14/16 17:29 Dose: 1 tab Pantoprazole Sodium (Protonix Ec Tab) 40 mg PO ACB [facility] Last Admin: 08/15/16 08:13 Dose: 40 mg - Labs Labs: 08/15/16 07:00 08/15/16 07:00 - Constitutional Appears: Non-toxic, No Acute Distress, Chronically Ill - Head Exam Additional comments: internal lower lip and extrenal gums on the right side of the lower jaw swollen , edematous, and boggy. No expressible drainage - Eye Exam Eye Exam: EOMI, PERRL Pupil Exam: NORMAL ACCOMODATION, PERRL - ENT Exam ENT Exam: Mucous Membranes Moist, Normal External Ear Exam, TM's Normal Bilaterally - Neck Exam Neck Exam: Full ROM, Normal Inspection - Respiratory Exam Respiratory Exam: Clear to Ausculation Bilateral, NORMAL BREATHING PATTERN. absent: Rales, Rhonchi, Wheezes - Cardiovascular Exam Cardiovascular Exam: REGULAR RHYTHM, RRR, +S1, +S2 - GI/Abdominal Exam GI & Abdominal Exam: Soft, Normal Bowel Sounds. absent: Distended, Tenderness - Extremities Exam Extremities Exam: Full ROM, Normal Inspection - Neurological Exam Neurological Exam: Alert, Awake, CN II-XII Intact, Oriented x3 - Psychiatric Exam Psychiatric exam: Normal Affect, Normal Mood - Skin Skin Exam: Warm Additional comments: central chin with area of induration extending to the right lateral border of the mouth and to the lower lip superiorly. Small puncture in the center of the chin induration with small amount expressible sanguo-purulent fluid, tender to the touch. Assessment and Plan - Assessment and Plan (Free Text) Assessment: 41 yo male with uncontrolled DM with carbuncle of the right lower face and chin and possible abscess. MRI of the face is pending. Was on oral Augmentin and Bactrim for at least two days. Currently on Vancomycin IV for antibiotic treatment. This will cover for MRSA and most gram positive infections. Cultures of the drainage were sent for evaluation. If the patient is not showing improvement by tomorrow, will resume a PCN or Cephalosporin base of Zosyn or Cefepime at that time. Will continue on Vancomycin IV alone overnight and await culture results for now. Supportive care and local wound care. Official read of MRI showing right facial abscess anterior to mandible with definite evidence of osteomyelitis. In addition, study showing phlegmonous tissue anterior to the mandible and extending cranially to maxilla. Reactive level 1 and 2 lymphadenopathy. 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 Thank you for allowing me to participate in the care of this patient, we will follow with you.
--- NOTE | 2016-08-15 23:31 | CP.PCM.PN ---
Subjective - Date & Time of Evaluation Date of Evaluation: 08/15/16 Time of Evaluation: 11:15 - Subjective Subjective: Seen and examined at the bed side. Infected Chin ulcer draining Pus. Denies fever or chills. Objective - Vital Signs/Intake and Output Vital Signs (last 24 hours): Temp Pulse Resp BP Pulse Ox 97.4 F L 74 18 123/85 97 08/15/16 16:00 08/15/16 16:00 08/15/16 16:00 08/15/16 16:00 08/15/16 16:00 Intake and Output: 08/15/16 08/16/16 18:59 06:59 Intake Total 800 1080 Balance 800 1080 - Medications Medications: Current Medications Glyburide (Micronase) 5 mg PO BRK [facility] Last Admin: 08/15/16 08:13 Dose: 5 mg Vancomycin HCl (Vancomycin 1gm) 250 mls @ 167 mls/hr IVPB Q12H [facility] PRN Reason: Protocol Last Admin: 08/15/16 22:01 Dose: 167 mls/hr Piperacillin Sod/Tazobactam Sod (Zosyn 3.375 In Ns 100ml) 100 mls @ 200 mls/hr IVPB Q6 [facility] PRN Reason: Protocol Stop: 08/20/16 23:59 Last Admin: 08/15/16 17:35 Dose: 200 mls/hr Insulin Human Lispro (Humalog) 0 units SC ACHS [facility] PRN Reason: Protocol Last Admin: 08/15/16 22:01 Dose: Not Given Metformin HCl (Glucophage) 500 mg PO BID [facility] Last Admin: 08/15/16 17:34 Dose: 500 mg Oxycodone/Acetaminophen (Percocet 5/325 Mg Tab) 1 tab PO Q6H PRN PRN Reason: Pain, moderate (4-7) Stop: 08/17/16 11:02 Last Admin: 08/14/16 17:29 Dose: 1 tab Pantoprazole Sodium (Protonix Ec Tab) 40 mg PO ACB [facility] Last Admin: 08/15/16 08:13 Dose: 40 mg - Labs Labs: 08/15/16 07:00 08/15/16 07:00 - Constitutional Appears: Well, In Acute Distress - Head Exam Head Exam: ATRAUMATIC, NORMAL INSPECTION, NORMOCEPHALIC - Eye Exam Eye Exam: EOMI, Normal appearance, PERRL Pupil Exam: NORMAL ACCOMODATION, PERRL - ENT Exam ENT Exam: Mucous Membranes Moist, Normal Exam - Neck Exam Neck Exam: Full ROM, Normal Inspection. absent: Lymphadenopathy - Respiratory Exam Respiratory Exam: Clear to Ausculation Bilateral, NORMAL BREATHING PATTERN - Cardiovascular Exam Cardiovascular Exam: REGULAR RHYTHM, +S1, +S2. absent: Murmur - GI/Abdominal Exam GI & Abdominal Exam: Soft, Normal Bowel Sounds. absent: Tenderness - Rectal Exam Rectal Exam: NORMAL INSPECTION - Exam Exam: Circumcision, NORMAL INSPECTION External exam: NORMAL EXTERNAL EXAM Speculum exam: NORMAL SPECULUM EXAM Bimanual exam: NORMAL BIMANUAL EXAM - Extremities Exam Extremities Exam: Full ROM, Normal Capillary Refill, Normal Inspection. absent : Joint Swelling, Pedal Edema - Back Exam Back Exam: NORMAL INSPECTION - Neurological Exam Neurological Exam: Alert, Awake, CN II-XII Intact, Normal Gait, Oriented x3 - Psychiatric Exam Psychiatric exam: Normal Affect, Normal Mood - Skin Skin Exam: Dry, Intact, Normal Color, Warm - Additional Findings Additional findings: MRI of the Face: IMPRESSION: Right facial abscess anterior to the mandible without definite evidence of osteomyelitis. Also noted is phlegmonous tissue anterior to the mandible and extending cranially to the maxilla. Reactive level 1 and level 2 lymphadenopathy. Multilevel degenerative changes in the cervical spine with [id number]-paxaau spinal canal stenosis, worse at C5-6 with severe right neural foraminal stenosis and probable cord compression. Dedicated MRI of the cervical spine would be helpful for further evaluation. Assessment and Plan (1) Abscess of chin Assessment & Plan: Osteomyelitis- Ruled out Failed outpatient Treatment IV Vancomycin and Zosyn Pain Management Wound and Blood Cultures Sed Rate Surgery and ID Consulted NPO for the I&D. Status: Acute (2) Diabetes mellitus with hyperglycemia Assessment and Plan: Accu-check with Coverage HgA1C PO medication Pos Procedure Status: Acute (2) Diabetes mellitus with hyperglycemia Status: Acute
[2016-08-16] MEDS: Piperacillin/Tazobact 3.375 gm 100 ML IVPB SCH ×4 (05:37→17:40)
[2016-08-16] MEDS: Vancomycin 1gm in NS 250ml 250 ML IVPB SCH ×2 (08:37→21:19)
[2016-08-16] MEDS: Pantoprazole 40 mg EC Tab PO SCH (08:38)
[2016-08-16] MEDS: Insulin Lispro 1 UNITS/0.01 ML SC SCH ×5 (08:38→21:18)
[2016-08-16] MEDS ORDERED: Oxycodone/Acetaminophen 5/325 mg Tab PO PRN (10:33)
--- NOTE | 2016-08-16 13:25 | CP.PCM.PN ---
Subjective - Date & Time of Evaluation Date of Evaluation: 08/16/16 Time of Evaluation: 07:20 - Subjective Subjective: Surgery progress note. Dr. Vail Pt seen and examined at bedside. No acute events overnight. No new complaints. No F/C. No N/V/D. No Abd pain. Tolerating diet. States that the swelling has improved. Objective - Vital Signs/Intake and Output Vital Signs (last 24 hours): Temp Pulse Resp BP Pulse Ox 97.6 F 73 19 114/75 97 08/16/16 06:00 08/16/16 06:00 08/16/16 06:00 08/16/16 06:00 08/16/16 06:00 Intake and Output: 08/16/16 08/16/16 06:59 18:59 Intake Total 1080 Balance 1080 - Medications Medications: Current Medications Acetaminophen (Tylenol 325mg Tab) 650 mg PO Q6H PRN PRN Reason: Pain, Mild (1-3) Glyburide (Micronase) 5 mg PO BRK [facility] Last Admin: 08/16/16 08:42 Dose: 5 mg Vancomycin HCl (Vancomycin 1gm) 250 mls @ 167 mls/hr IVPB Q12H [facility] PRN Reason: Protocol Last Admin: 08/16/16 08:37 Dose: 167 mls/hr Piperacillin Sod/Tazobactam Sod (Zosyn 3.375 In Ns 100ml) 100 mls @ 200 mls/hr IVPB Q6 [facility] PRN Reason: Protocol Stop: 08/20/16 23:59 Last Admin: 08/16/16 11:24 Dose: 200 mls/hr Insulin Human Lispro (Humalog) 0 units SC ACHS [facility] PRN Reason: Protocol Last Admin: 08/16/16 11:22 Dose: 5 units Metformin HCl (Glucophage) 1,000 mg PO BID [facility] Pantoprazole Sodium (Protonix Ec Tab) 40 mg PO ACB [facility] Last Admin: 08/16/16 08:38 Dose: 40 mg - Labs Labs: 08/15/16 07:00 08/15/16 07:00 - Constitutional Appears: Well, No Acute Distress - Head Exam Head Exam: ATRAUMATIC, NORMAL INSPECTION, NORMOCEPHALIC - Eye Exam Eye Exam: EOMI - ENT Exam ENT Exam: Mucous Membranes Moist - Respiratory Exam Respiratory Exam: NORMAL BREATHING PATTERN - Cardiovascular Exam Cardiovascular Exam: absent: JVD - GI/Abdominal Exam GI & Abdominal Exam: Soft - Neurological Exam Neurological Exam: Alert, Awake, Oriented x3 - Psychiatric Exam Psychiatric exam: Normal Affect, Normal Mood - Skin Additional comments: Chin abscess with packing placed. Removed about 3cm of packing with some drainage appreciated. Dressings changed. Assessment and Plan - Assessment and Plan (Free Text) Assessment: 41yo M with PMHx of uncontrolled DM here with chin abscess. S/P bedside I&D on . - No Leukocytosis, Afebrile - CRP elevated - MRI with no signs of osteo - Awaiting wound culture sensitivities. - Continue ABX as per ID. - Pain control - Recommend Oral Surgery Eval as out-patient - Dressing changes with dry gauze as needed Discussed case with Dr. Yared Mota PGY1 surgery pager: [phone]
[2016-08-16 16:34] VITALS: RESP 18; O2SAT 98
--- NOTE | 2016-08-16 17:59 | CP.PCM.PN ---
Subjective - Date & Time of Evaluation Date of Evaluation: 08/16/16 Time of Evaluation: 16:00 - Subjective Subjective: Infectious Disease Follow Up: August 16, 2016 41 yo male with recent visit to the ER for abscess in his chin. Needle aspiration of the area on initial ER visit. He received PO Bactrim and Augmentin for treatment. The patient has been on antibiotics over two days but the patient experienced more pain and tenderness of the area since needle aspiration. The patient has multiple medical issues including DM and various issues to the jaw with recent dental work performed. The patient stated that he still had drainage for mucopurulent drainage from site with needle aspiration. Currently on Vancomcyin. No previous cultures from initial hospitalization or previous ER visits. Official CT reading is showing right facial abscess anterior to mandible with definite evidence of osteomyelitis. In addition, study showing phlegmonous tissue anterior to the mandible and extending cranially to maxilla. Reactive level 1 and 2 lymphadenopathy. 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 MSSA growing out of the wound cultures. Noted that one wound culture is also showing a gram negative alfonso. Objective - Vital Signs/Intake and Output Vital Signs (last 24 hours): Temp Pulse Resp BP Pulse Ox 98 F 69 18 100/76 98 08/16/16 16:00 08/16/16 16:00 08/16/16 16:00 08/16/16 16:00 08/16/16 16:00 Intake and Output: 08/16/16 08/16/16 06:59 18:59 Intake Total 1080 820 Balance 1080 820 - Medications Medications: Current Medications Acetaminophen (Tylenol 325mg Tab) 650 mg PO Q6H PRN PRN Reason: Pain, Mild (1-3) Glyburide (Micronase) 5 mg PO BRK [facility] Last Admin: 08/16/16 08:42 Dose: 5 mg Vancomycin HCl (Vancomycin 1gm) 250 mls @ 167 mls/hr IVPB Q12H [facility] PRN Reason: Protocol Last Admin: 08/16/16 08:37 Dose: 167 mls/hr Piperacillin Sod/Tazobactam Sod (Zosyn 3.375 In Ns 100ml) 100 mls @ 200 mls/hr IVPB Q6 [facility] PRN Reason: Protocol Stop: 08/20/16 23:59 Last Admin: 08/16/16 11:24 Dose: 200 mls/hr Insulin Human Lispro (Humalog) 0 units SC ACHS [facility] PRN Reason: Protocol Last Admin: 08/16/16 11:22 Dose: 5 units Metformin HCl (Glucophage) 1,000 mg PO BID [facility] Pantoprazole Sodium (Protonix Ec Tab) 40 mg PO ACB [facility] Last Admin: 08/16/16 08:38 Dose: 40 mg - Labs Labs: 08/15/16 07:00 08/15/16 07:00 - Constitutional Appears: Non-toxic, No Acute Distress, Chronically Ill - Head Exam Head Exam: ATRAUMATIC Additional comments: internal lower lip and extrenal gums on the right side of the lower jaw swollen , edematous, and boggy. No expressible drainage... overall this has improved greatly since admission. - Eye Exam Eye Exam: EOMI, PERRL Pupil Exam: NORMAL ACCOMODATION, PERRL - ENT Exam ENT Exam: Mucous Membranes Moist, Normal External Ear Exam, TM's Normal Bilaterally - Neck Exam Neck Exam: Full ROM, Normal Inspection - Respiratory Exam Respiratory Exam: Clear to Ausculation Bilateral, NORMAL BREATHING PATTERN. absent: Rales, Rhonchi, Wheezes - Cardiovascular Exam Cardiovascular Exam: REGULAR RHYTHM, RRR, +S1, +S2 - GI/Abdominal Exam GI & Abdominal Exam: Soft, Normal Bowel Sounds. absent: Distended, Tenderness - Extremities Exam Extremities Exam: Full ROM, Normal Inspection - Neurological Exam Neurological Exam: Alert, Awake, CN II-XII Intact, Oriented x3 - Psychiatric Exam Psychiatric exam: Normal Affect, Normal Mood - Skin Skin Exam: Warm Additional comments: central chin with area of induration extending to the right lateral border of the mouth and to the lower lip superiorly on admission... patient improving overall. Small puncture in the center of the chin induration with small amount expressible sanguo-purulent fluid, tender to the touch. Area I&D with packing in place. Assessment and Plan - Assessment and Plan (Free Text) Assessment: 41 yo male with uncontrolled DM with carbuncle of the right lower face and chin and possible abscess. MRI of the face is pending. Was on oral Augmentin and Bactrim for at least two days. Currently on Vancomycin IV for antibiotic treatment. This will cover for MRSA and most gram positive infections. Cultures of the drainage were sent for evaluation. Continue on Vancomycin IV and Zosyn. Cultures showing MSSA and one culture is also showing gram negative rods. Supportive care and local wound care. Official read of MRI showing right facial abscess anterior to mandible with definite evidence of osteomyelitis. In addition, study showing phlegmonous tissue anterior to the mandible and extending cranially to maxilla. Reactive level 1 and 2 lymphadenopathy. 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 Facial swelling has overall improved. Await identification of the gram negative alfonso. For the MSSA infection, considering treatment with Bactrim DS 1 tab BID and Keflex 500 mg TID for 14 days if there is continued improvement. Thank you for allowing me to participate in the care of this patient, we will follow with you.
--- NOTE | 2016-08-16 22:15 | CP.PCM.PN ---
Subjective - Date & Time of Evaluation Date of Evaluation: 08/16/16 Time of Evaluation: 16:05 - Subjective Subjective: Seen and examined at the bed side. S/P Wound Debridment. C/O Pain at the debridment site. Denies fever or chills. Surgery Cleared the patient for D/C after Unpacking the wound, and will follow as an out patient. Objective - Vital Signs/Intake and Output Vital Signs (last 24 hours): Temp Pulse Resp BP Pulse Ox 98 F 69 18 100/76 98 08/16/16 16:00 08/16/16 16:00 08/16/16 16:00 08/16/16 16:00 08/16/16 16:00 Intake and Output: 08/16/16 08/17/16 18:59 06:59 Intake Total 820 900 Output Total 1500 Balance 820 -600 - Medications Medications: Current Medications Acetaminophen (Tylenol 325mg Tab) 650 mg PO Q6H PRN PRN Reason: Pain, Mild (1-3) Glyburide (Micronase) 5 mg PO BRK [facility] Last Admin: 08/16/16 08:42 Dose: 5 mg Vancomycin HCl (Vancomycin 1gm) 250 mls @ 167 mls/hr IVPB Q12H [facility] PRN Reason: Protocol Last Admin: 08/16/16 21:19 Dose: 167 mls/hr Piperacillin Sod/Tazobactam Sod (Zosyn 3.375 In Ns 100ml) 100 mls @ 200 mls/hr IVPB Q6 [facility] PRN Reason: Protocol Stop: 08/20/16 23:59 Last Admin: 08/16/16 17:40 Dose: 200 mls/hr Insulin Human Lispro (Humalog) 0 units SC ACHS [facility] PRN Reason: Protocol Last Admin: 08/16/16 21:18 Dose: Not Given Metformin HCl (Glucophage) 1,000 mg PO BID [facility] Last Admin: 08/16/16 17:40 Dose: 1,000 mg Pantoprazole Sodium (Protonix Ec Tab) 40 mg PO ACB [facility] Last Admin: 08/16/16 08:38 Dose: 40 mg - Labs Labs: 08/15/16 07:00 08/15/16 07:00 - Constitutional Appears: Well, No Acute Distress - Head Exam Head Exam: ATRAUMATIC, NORMAL INSPECTION, NORMOCEPHALIC - Eye Exam Eye Exam: EOMI, Normal appearance, PERRL Pupil Exam: NORMAL ACCOMODATION, PERRL - ENT Exam ENT Exam: Mucous Membranes Moist, Normal Exam - Neck Exam Neck Exam: Full ROM, Normal Inspection. absent: Lymphadenopathy - Respiratory Exam Respiratory Exam: Clear to Ausculation Bilateral, NORMAL BREATHING PATTERN - Cardiovascular Exam Cardiovascular Exam: REGULAR RHYTHM, +S1, +S2. absent: Murmur - GI/Abdominal Exam GI & Abdominal Exam: Soft, Normal Bowel Sounds. absent: Tenderness - Extremities Exam Extremities Exam: Full ROM, Normal Capillary Refill, Normal Inspection. absent : Joint Swelling, Pedal Edema - Back Exam Back Exam: NORMAL INSPECTION - Neurological Exam Neurological Exam: Alert, Awake, CN II-XII Intact, Normal Gait, Oriented x3 - Psychiatric Exam Psychiatric exam: Normal Affect, Normal Mood - Skin Skin Exam: Dry, Intact, Normal Color, Warm Assessment and Plan (1) Abscess of chin Assessment & Plan: Osteomyelitis- Ruled out Failed outpatient Treatment IV Vancomycin and Zosyn Pain Management Wound and Blood Cultures Sed Rate Surgery and ID Consulted NPO for the I&D. Status: Acute (2) Diabetes mellitus with hyperglycemia Assessment and Plan: Accu-check with Coverage HgA1C PO medication Pos Procedure Status: Chronic Status: Acute
[2016-08-17] MEDS: Piperacillin/Tazobact 3.375 gm 100 ML IVPB SCH ×4 (05:11→18:40)
[2016-08-17] MEDS: Vancomycin 1gm in NS 250ml 250 ML IVPB SCH (08:00)
[2016-08-17] MEDS: Pantoprazole 40 mg EC Tab PO SCH (09:10)
[2016-08-17] MEDS: Insulin Lispro 1 UNITS/0.01 ML SC SCH ×3 (09:11→18:40)
--- NOTE | 2016-08-17 15:56 | CP.PCM.PN ---
Subjective - Date & Time of Evaluation Date of Evaluation: 08/17/16 Time of Evaluation: 11:00 - Subjective Subjective: Surgery Progress note. Dr. Vail Pt seen and examined at bedside. No acute events overnight. No F/C. States that the chin swelling has improved considerably. Still with some discharge. No new complaints. Objective - Vital Signs/Intake and Output Vital Signs (last 24 hours): Temp Pulse Resp BP Pulse Ox 98.2 F 74 18 123/77 98 08/17/16 08:43 08/17/16 08:43 08/17/16 08:43 08/17/16 08:43 08/17/16 08:43 Intake and Output: 08/17/16 08/17/16 06:59 18:59 Intake Total 900 1200 Output Total 1500 Balance -600 1200 - Medications Medications: Current Medications Acetaminophen (Tylenol 325mg Tab) 650 mg PO Q6H PRN PRN Reason: Pain, Mild (1-3) Glyburide (Micronase) 5 mg PO BRK [facility] Last Admin: 08/17/16 09:10 Dose: 5 mg Vancomycin HCl (Vancomycin 1gm) 250 mls @ 167 mls/hr IVPB Q12H [facility] PRN Reason: Protocol Last Admin: 08/17/16 08:00 Dose: 167 mls/hr Piperacillin Sod/Tazobactam Sod (Zosyn 3.375 In Ns 100ml) 100 mls @ 200 mls/hr IVPB Q6 [facility] PRN Reason: Protocol Stop: 08/20/16 23:59 Last Admin: 08/17/16 13:09 Dose: 200 mls/hr Insulin Human Lispro (Humalog) 0 units SC ACHS [facility] PRN Reason: Protocol Last Admin: 08/17/16 13:08 Dose: 3 units Metformin HCl (Glucophage) 1,000 mg PO BID [facility] Last Admin: 08/17/16 09:10 Dose: 1,000 mg Pantoprazole Sodium (Protonix Ec Tab) 40 mg PO ACB [facility] Last Admin: 08/17/16 09:10 Dose: 40 mg - Labs Labs: 08/15/16 07:00 08/15/16 07:00 - Constitutional Appears: Well, No Acute Distress - Head Exam Head Exam: ATRAUMATIC, NORMAL INSPECTION, NORMOCEPHALIC - Eye Exam Eye Exam: EOMI, Normal appearance, PERRL Pupil Exam: PERRL - ENT Exam ENT Exam: Mucous Membranes Moist Additional comments: oral mucousa intact, lower right mandible gingiva swelling improved. - Respiratory Exam Respiratory Exam: NORMAL BREATHING PATTERN - GI/Abdominal Exam GI & Abdominal Exam: Soft - Skin Additional comments: Right chin abscess with mild drainage. dressing replaced. Assessment and Plan - Assessment and Plan (Free Text) Assessment: 41yo M with PMHx of uncontrolled DM here with chin abscess. S/P bedside I&D on . - Afebrile - MRI with no signs of osteo - Wound - S. Aureas, E. Aerogenes - Transition to PO abx as per ID - Pain control - Recommend Oral Surgery Eval as out-patient - Cleared for discharge from surgical standpoint. Patient may remove packing in 1-2 days. Keep wound clean and dry and may dress with dry gauze as needed. - Follow up in office with Dr. Vail in 2 weeks. (Patient to call for appointment) Discussed case with Dr. Yared Mota PGY1 surgery pager: [phone]
[2016-08-17 17:08] VITALS: BP 119/80; PULSE 72; TEMP 97.8
--- NOTE | 2016-08-17 17:49 | CP.PCM.DIS ---
Provider - Provider Date of Admission: 08/13/16 22:18 Attending physician: Edwina Medeiros MD Primary care physician: NO PRIMARY CARE PROVIDER Time Spent in preparation of Discharge (in minutes): 25 Diagnosis - Discharge Diagnosis (1) Abscess of chin Status: Acute (2) Diabetes mellitus with hyperglycemia Status: Acute Hospital Course - Lab Results Lab Results: Micro Results 08/14/16 11:40 Abscess - Abscess Gram Stain - Final 08/14/16 11:40 Abscess - Abscess Wound Culture - Final Staphylococcus Aureus Enterobacter Aerogenes 08/13/16 23:30 Chin Gram Stain - Final 08/13/16 23:30 Chin Wound Culture - Final Staphylococcus Aureus Most Recent Lab Values WBC 8.2 10^3/ul (4.5-11.0) 08/15/16 07:00 RBC 4.75 10^6/uL (3.5-6.1) 08/15/16 07:00 Hgb 12.8 gm/dL (14.0-18.0) L 08/15/16 07:00 Hct 38.3 % (42.0-52.0) L 08/15/16 07:00 MCV 80.6 fL (80.0-105.0) 08/15/16 07:00 MCH 26.9 pg (25.0-35.0) 08/15/16 07:00 MCHC 33.4 g/dl (31.0-37.0) 08/15/16 07:00 RDW 12.0 % (11.5-14.5) 08/15/16 07:00 Plt Count 236 10^3/uL (120.0-450.0) 08/15/16 07:00 MPV 10.2 fl (7.0-11.0) 08/15/16 07:00 Gran % 62.4 % (50.0-68.0) 08/15/16 07:00 Lymph % (Auto) 25.8 % (22.0-35.0) 08/15/16 07:00 [place] % (Auto) 9.9 % (1.0-6.0) H 08/15/16 07:00 Eos % (Auto) 1.8 % (1.5-5.0) 08/15/16 07:00 Baso % (Auto) 0.1 % (0.0-3.0) 08/15/16 07:00 Gran # 5.11 (1.4-6.5) 08/15/16 07:00 Lymph # 2.1 (1.2-3.4) 08/15/16 07:00 [place] # 0.8 (0.1-0.6) H 08/15/16 07:00 Eos # 0.2 (0.0-0.7) 08/15/16 07:00 Baso # 0.01 K/mm3 (0.0-2.0) 08/15/16 07:00 ESR 53 mm/hr (0.0-15.0) H 08/15/16 07:00 Sodium 135 mmol/L (132-148) 08/15/16 07:00 Potassium 4.2 mmol/L (3.6-5.0) 08/15/16 07:00 Chloride 99 mmol/L (95-110) 08/15/16 07:00 Carbon Dioxide 29 mmol/L (21-33) 08/15/16 07:00 Anion Gap 11 (10-20) 08/15/16 07:00 BUN 10 mg/dL (7-21) 08/15/16 07:00 Creatinine 0.9 mg/dL (0.5-1.4) 08/15/16 07:00 Est GFR ( Amer) > 60 08/15/16 07:00 Est GFR (Non-Af Amer) > 60 08/15/16 07:00 POC Glucose (mg/dL) 113 mg/dL (65-110) H 08/17/16 16:35 Random Glucose 274 mg/dL (70-110) H 08/15/16 07:00 Hemoglobin A1c 12.9 % (4.2-6.5) H 08/14/16 10:30 Calcium 8.9 mg/dL (8.4-10.5) 08/15/16 07:00 Total Bilirubin 0.9 mg/dL (0.2-1.3) 08/15/16 07:00 AST 29 U/L (15-59) 08/15/16 07:00 ALT 44 U/L (7-56) 08/15/16 07:00 Alkaline Phosphatase 144 U/L (38-133) H 08/15/16 07:00 C-React Prot High Sens > 15.00 mg/L (1.00-3.00) H 08/15/16 07:00 Total Protein 7.6 g/dL (5.8-8.3) 08/15/16 07:00 Albumin 3.5 g/dL (3.0-4.8) 08/15/16 07:00 Globulin 4.1 gm/dL 08/15/16 07:00 Albumin/Globulin Ratio 0.8 (1.1-1.8) L 08/15/16 07:00 Triglycerides 111 mg/dL (35-160) 08/15/16 07:00 Cholesterol 163 mg/dL (130-200) 08/15/16 07:00 LDL Cholesterol Direct 105 mg/dL (0-129) 08/15/16 07:00 HDL Cholesterol 36 mg/dL (29-60) 08/15/16 07:00 TSH 3rd Generation 1.50 mIU/mL (0.46-4.68) 08/15/16 07:00 Vancomycin Trough 7.1 ug/mL (5.0-10.0) 08/17/16 07:00 Discharge Exam - Head Exam Head Exam: ATRAUMATIC, NORMOCEPHALIC Discharge Plan - Discharge Medications Prescriptions: Amoxicillin/Clavulanate [Augmentin 875 MG-125 MG] 1 tab PO BID #28 tab Lactobacillus Acidophilus [Bacid Acidophilus] 1 cap PO BID #40 cap Sulfamethoxazole/Trimethoprim [Bactrim DS 800 mg-160 mg] 1 tab PO BID #28 tab Sulfamethoxazole/Trimethoprim [Bactrim DS 800 mg-160 mg] 1 tab PO BID #28 tab Metformin HCl [Glucophage] 1,000 mg PO BID #60 tablet Cephalexin [cephalexin] 500 mg PO TID #42 cap - Follow Up Plan Condition: GOOD Disposition: HOME/ ROUTINE Instructions: Cellulitis (ED) Additional Instructions: If you experience any chest pain, any shortness of breath, intense pain, or prolonged nausea/vomiting/diarrhea/fever/chills, go see Dr. Medeiros or your primary care physician in his office, go to the nearest emergency room, or call 911. Follow up with your primary care physician or Dr. Medeiros. Call office for an appointment. Follow up with Dr. Degroot. Call office for an appointment. Referrals: Adam Degroot MD [Staff Provider] - PCP,NO [Primary Care Provider] - Follow up with primary Seman,Edwina Lao MD [Medical Doctor] - Johnny Vail MD [Staff Provider] -
--- NOTE | 2016-08-17 17:54 | CP.PCM.PN ---
Subjective - Date & Time of Evaluation Date of Evaluation: 08/17/16 Time of Evaluation: 16:30 - Subjective Subjective: Infectious Disease Follow Up: August 17, 2016 41 yo male with recent visit to the ER for abscess in his chin. Needle aspiration of the area on initial ER visit. He received PO Bactrim and Augmentin for treatment. The patient has been on antibiotics over two days but the patient experienced more pain and tenderness of the area since needle aspiration. The patient has multiple medical issues including DM and various issues to the jaw with recent dental work performed. The patient stated that he still had drainage for mucopurulent drainage from site with needle aspiration. Currently on Vancomcyin. No previous cultures from initial hospitalization or previous ER visits. Official CT reading is showing right facial abscess anterior to mandible with no definite evidence of osteomyelitis (initial teleradiology report reported right lower jaw osteomyelitis). In addition, study showing phlegmonous tissue anterior to the mandible and extending cranially to maxilla. Reactive level 1 and 2 lymphadenopathy. 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 MSSA growing out of the wound cultures. Noted that one wound culture is also showing a gram negative alfonso. Objective - Vital Signs/Intake and Output Vital Signs (last 24 hours): Temp Pulse Resp BP Pulse Ox 97.8 F 72 18 119/80 98 08/17/16 16:00 08/17/16 16:00 08/17/16 16:00 08/17/16 16:00 08/17/16 16:00 Intake and Output: 08/17/16 08/17/16 06:59 18:59 Intake Total 900 1200 Output Total 1500 Balance -600 1200 - Medications Medications: Current Medications Acetaminophen (Tylenol 325mg Tab) 650 mg PO Q6H PRN PRN Reason: Pain, Mild (1-3) Glyburide (Micronase) 5 mg PO BRK [facility] Last Admin: 08/17/16 09:10 Dose: 5 mg Vancomycin HCl (Vancomycin 1gm) 250 mls @ 167 mls/hr IVPB Q12H [facility] PRN Reason: Protocol Last Admin: 08/17/16 08:00 Dose: 167 mls/hr Piperacillin Sod/Tazobactam Sod (Zosyn 3.375 In Ns 100ml) 100 mls @ 200 mls/hr IVPB Q6 [facility] PRN Reason: Protocol Stop: 08/20/16 23:59 Last Admin: 08/17/16 13:09 Dose: 200 mls/hr Insulin Human Lispro (Humalog) 0 units SC ACHS [facility] PRN Reason: Protocol Last Admin: 08/17/16 13:08 Dose: 3 units Metformin HCl (Glucophage) 1,000 mg PO BID [facility] Last Admin: 08/17/16 09:10 Dose: 1,000 mg Pantoprazole Sodium (Protonix Ec Tab) 40 mg PO ACB [facility] Last Admin: 08/17/16 09:10 Dose: 40 mg - Labs Labs: 08/15/16 07:00 08/15/16 07:00 - Constitutional Appears: Non-toxic, No Acute Distress, Chronically Ill - Head Exam Head Exam: ATRAUMATIC, NORMOCEPHALIC Additional comments: internal lower lip and extrenal gums on the right side of the lower jaw swollen , edematous, and boggy. No expressible drainage... overall this has improved greatly since admission and is mostly resolved (mild swelling right lower jaw). - Eye Exam Eye Exam: EOMI, PERRL Pupil Exam: NORMAL ACCOMODATION, PERRL - ENT Exam ENT Exam: Mucous Membranes Moist, Normal External Ear Exam, TM's Normal Bilaterally - Neck Exam Neck Exam: Full ROM, Normal Inspection - Respiratory Exam Respiratory Exam: Clear to Ausculation Bilateral, NORMAL BREATHING PATTERN. absent: Rales, Rhonchi, Wheezes - Cardiovascular Exam Cardiovascular Exam: REGULAR RHYTHM, RRR, +S1, +S2 - GI/Abdominal Exam GI & Abdominal Exam: Soft, Normal Bowel Sounds. absent: Distended, Tenderness - Extremities Exam Extremities Exam: Full ROM, Normal Inspection - Neurological Exam Neurological Exam: Alert, Awake, CN II-XII Intact, Oriented x3 - Psychiatric Exam Psychiatric exam: Normal Affect, Normal Mood - Skin Skin Exam: Warm Additional comments: central chin with area of induration extending to the right lateral border of the mouth and to the lower lip superiorly on admission... patient improving overall. Small puncture in the center of the chin induration with small amount expressible sanguo-purulent fluid, tender to the touch. Area I&D with packing in place. Still with some discharge but cleared from surgical standpoint. Assessment and Plan - Assessment and Plan (Free Text) Assessment: 41 yo male with uncontrolled DM with carbuncle of the right lower face and chin and possible abscess. MRI of the face is pending. Was on oral Augmentin and Bactrim for at least two days. Currently on Vancomycin IV for antibiotic treatment. This will cover for MRSA and most gram positive infections. Cultures of the drainage were sent for evaluation. Continue on Vancomycin IV and Zosyn. Cultures showing MSSA and one culture is also showing gram negative rods. Supportive care and local wound care. Official read of MRI showing right facial abscess anterior to mandible with no definite evidence of osteomyelitis (initial teleradiology report reported right lower jaw osteomyelitis). In addition, study showing phlegmonous tissue anterior to the mandible and extending cranially to maxilla. Reactive level 1 and 2 lymphadenopathy. 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 Facial swelling has overall improved. Await identification of the gram negative alfonso - enterobacter identified. For the MSSA infection, considering treatment with Bactrim DS 1 tab BID and Keflex 500 mg TID for 14 days if there is continued improvement. Spoke with Dr. Medeiros and surgical team. Thank you for allowing me to participate in the care of this patient, we will follow with you.
== END 2016-08-17 19:50 | disposition home or self-care (01) | DRG 603 ==
LOC: ED 20:33 → ERH 22:18 → 3RSO 23:02
PROVIDERS: ADMIT Internal Medicine; ATTEND Internal Medicine
DX: L02.01 Cutaneous abscess of face (principal); L03.211 Cellulitis of face; B95.61 Methicillin susceptible Staphylococcus aureus infection as the cause of diseases classified elsewhere; E11.65 Type 2 diabetes mellitus with hyperglycemia; K59.00 Constipation, unspecified

== ENCOUNTER 2016-11-16 11:04 | Emergency (ER) | payer OTHER ==
[2016-11-16 11:17] VITALS: BMI 23.1
[2016-11-16 11:22] VITALS: TEMP 98.7
--- NOTE | 2016-11-16 12:08 | ED PDOC ---
Arrival/HPI <Robbie Mcneal - Last Filed: 11/16/16 12:43> <DALTON SEALS - Last Filed: 11/16/16 13:40> - General Chief Complaint: Abnormal Skin Integrity Time Seen by Provider: 11/16/16 11:26 - History of Present Illness Narrative History of Present Illness (Text): 11/16/16 12:06 Mr. Case is a 41 year old male with past medical history significant for uncontrolled diabetes who complains of an abscess and fever. He reports noticing an abscess on his RUQ abdomen 7 days prior to arrival. He indicated the abscess progressively grew in size over time with minimal drainage. On Sunday he became concerned and started taking left over antibiotics from a previous admission. He reports taking Augmentin 875-125mg and Cephalexin 500mg for the past 4 days. He indicates feeling febrile and chills since starting his self-prescribed antibiotic course. (DALTON SEALS) Past Medical History - Provider Review Nursing Documentation Reviewed: Yes - Infectious Disease Hx of Infectious Diseases: None - Tetanus Immunization Tetanus Immunization: Unknown - Cardiac Hx Cardiac Disorders: No - Pulmonary Hx Respiratory Disorders: No - Neurological Hx Neurological Disorder: No - HEENT Hx HEENT Disorder: No - Renal Hx Renal Disorder: No - Endocrine/Metabolic Hx Endocrine Disorders: Yes Hx Diabetes Mellitus Type 2: Yes (Uncontrolled) - Hematological/Oncological Hx Blood Transfusion Reaction: No - Integumentary Hx Dermatological Disorder: Yes Other/Comment: abcess - Musculoskeletal/Rheumatological Hx Musculoskeletal Disorders: No Hx Falls: No - Gastrointestinal Hx Gastrointestinal Disorders: No - Genitourinary/Gynecological Hx Genitourinary Disorders: No - Psychiatric Hx Psychophysiologic Disorder: No Hx Substance Use: No - Surgical History Other/Comment: abcess drained - Anesthesia Hx Anesthesia: No <DALTON SEALS - Last Filed: 11/16/16 13:40> Family/Social History Family/Social History: No Known Family HX Smoking Status: Never Smoked Hx Alcohol Use: Yes Frequency of alcohol use: Socially Hx Substance Use: No <DALTON SEALS - Last Filed: 11/16/16 13:40> Allergies/Home Meds <Robbie Mcneal - Last Filed: 11/16/16 12:43> <DALTON SEALS - Last Filed: 11/16/16 13:40> Allergies/Adverse Reactions: Allergies No Known Allergies Allergy (Verified 11/16/16 11:17) Home Medications: Home Meds Medication Instructions Recorded Confirmed glyBURIDE [Micronase] 5 mg PO DAILY 08/10/16 11/16/16 SITagliptin [Januvia] 50 mg PO DAILY 11/16/16 11/16/16 Review of Systems - Review of Systems Constitutional: Fevers, Night Sweats. absent: Fatigue, Weight Change Eyes: absent: Vision Changes ENT: absent: Hearing Changes, Tinnitus Respiratory: absent: SOB, Cough Cardiovascular: absent: Chest Pain, Palpitations Gastrointestinal: Stool Changes, Constipation. absent: Abdominal Pain, Nausea, Vomiting Skin: Abscess (mid abdomen ) Neurological: absent: Headache, Dizziness Endocrine: absent: Diaphoresis Psychiatric: absent: Anxiety, Depression <DALTON SEALS - Last Filed: 11/16/16 13:40> Physical Exam Vital Signs Reviewed: Yes Temperature: Afebrile Blood Pressure: Normal Pulse: Regular Respiratory Rate: Normal Appearance: Positive for: Well-Appearing Pain Distress: None Mental Status: Positive for: Alert and Oriented X 3 - Systems Exam Head: Present: Atraumatic, Normocephalic Pupils: Present: PERRL Extroacular Muscles: Present: EOMI Conjunctiva: Present: Normal Mouth: Present: Moist Mucous Membranes Neck: Present: Normal Range of Motion Respiratory/Chest: Present: Clear to Auscultation, Good Air Exchange. No: Respiratory Distress Cardiovascular: Present: Regular Rate and Rhythm, Normal S1, S2 Abdomen: Present: Normal Bowel Sounds. No: Tenderness, Distention Upper Extremity: Present: Normal Inspection, Normal ROM, NORMAL PULSES. No: Cyanosis Lower Extremity: Present: Normal Inspection, NORMAL PULSES, Normal ROM Neurological: Present: GCS=15, CN II-XII Intact, Speech Normal Skin: Present: Erythematous (mid-abdomen abscess), Abscess (mid abdomen, hard, 3 -4cm x 3-4cm round abscess with minimal drainage) Psychiatric: Present: Alert, Oriented x 3 <DALTON SEALS - Last Filed: 11/16/16 13:40> Vital Signs Temp Pulse Resp BP Pulse Ox 11/16/16 11:20 98.7 F 90 19 127/83 96 Medical Decision Making <Robbie Mcneal - Last Filed: 11/16/16 12:43> <D[employer]TON SEALS - Last Filed: 11/16/16 13:40> ED Course and Treatment: In agreement with resident note. Patient was seen and evaluated with resident, came up with plan and treatment together. A 41 year old male with fever, chills and abscess on abdomen. On physical exam, patient has a hard, erythematous and round mid abdominal abscess with minimal drainage, about 3-4 cm by 3-4 cm. (Robbie Mcneal) 11/16/16 12:20 Impression: Mr. Case is a 41 year old male who complains of fever, chills, and abscess located on abdomen. Differential Diagnosis included but are not limited to: - Abscess - Uncontrolled DM2 Plan: - Curbside surgery for I&D - CBC, PT, PTT, Blood culture, wound culture - Bactrim -- Reassess and disposition Progress Notes: 11/16/16 13:25 Surgical team preformed I&D bedside, recommend return in 48 hours to OR or ED for repacking of wound (DALTON SEALS) - Lab Interpretations Lab Results: 11/16/16 12:05 11/16/16 12:05 Lab Results 11/16/16 12:05: Sodium 135, Potassium 4.2, Chloride 97 L, Carbon Dioxide 29, Anion Gap 13, BUN 14, Creatinine 1.1, Est GFR ( Amer) > 60, Est GFR (Non- Af Amer) > 60, Random Glucose 241 H, Calcium 9.5, Total Bilirubin 1.0, AST 46, ALT 90 H, Alkaline Phosphatase 152 H, Total Protein 8.5 H, Albumin 4.2, Globulin 4.3, Albumin/Globulin Ratio 1.0 L 11/16/16 12:05: PT 11.3, INR 1.05, APTT 32.8 H 11/16/16 12:05: WBC 6.3 D, RBC 5.13, Hgb 14.1, Hct 41.2 L, MCV 80.3, MCH 27.5, MCHC 34.2, RDW 12.3, Plt Count 218, MPV 10.2, Gran % 78.2 H, Lymph % (Auto) 13.8 L, [place] % (Auto) 6.8 H, Eos % (Auto) 1.0 L, Baso % (Auto) 0.2, Gran # 4.92 , Lymph # 0.9 L, [place] # 0.4, Eos # 0.1, Baso # 0.01 - Medication Orders Current Medication Orders: Discontinued Medications Lidocaine HCl (Lidocaine 2% 20ml Vial) 0 ml IJ ONCE STA Stop: 11/16/16 12:49 - Scribe Statement The provider has reviewed the documentation as recorded by the Scribe <Robbie Mcneal - Last Filed: 11/16/16 12:43> - PA / [employer] OPERATOR / Resident Statement MD/DO has reviewed & agrees with the documentation as recorded. MD/DO has examined the patient and agrees with the treatment plan. <DALTON SEALS - Last Filed: 11/16/16 13:40> - Scribe Statement Benton Aguirre All medical record entries made by the Scribe were at my direction and personally dictated by me. I have reviewed the chart and agree that the record accurately reflects my personal performance of the history, physical exam, medical decision making, and the department course for this patient. I have also personally directed, reviewed, and agree with the discharge instructions and disposition. (Robbie Mcneal) Disposition/Present on Arrival <Robbie Mcneal - Last Filed: 11/16/16 12:43> - Present on Arrival Any Indicators Present on Arrival: Yes History of DVT/PE: No History of Uncontrolled Diabetes: Yes Urinary Catheter: No History of Decub. Ulcer: No History Surgical Site Infection Following: None - Disposition Have Diagnosis and Disposition been Completed?: Yes Disposition Time: 13:45 <DALTON SEALS - Last Filed: 11/16/16 13:40> - Disposition Diagnosis: Abscess Disposition: HOME/ ROUTINE Patient Problems: Current Active Problems Problem Status Onset Abscess Acute Condition: IMPROVED Discharge Instructions (ExitCare): Abscess (GEN) Additional Instructions: Mr. Ríos, thank you for letting us take care of you today. Your provider was Dr. Seals. You were treated for abscess. The emergency medical care you received today was directed at your acute symptoms. If you were prescribed any medication, please fill it and take as directed. It may take several days for your symptoms to resolve. Return to the Emergency Department if your symptoms worsen, do not improve, or if you have any other problems. Please contact your doctor or call one of the physicians/clinics you have been referred to that are listed on the Patient Visit Information form that is included in your discharge packet. Bring any paperwork you were given at discharge with you along with any medications you are taking to your follow up visit. Our treatment cannot replace ongoing medical care by a primary care provider (PCP) outside of the emergency department. Thank you for allowing the [facility] team to be part of your care today. Return in 48 hours to ER or OR for repacking incision site. Follow up with Dr. Vail in one week. Prescriptions: Sulfamethoxazole/Trimethoprim [Bactrim DS 800 mg-160 mg] 1 tab PO BID #20 tab
[2016-11-16 12:42] LABS: INR 1.05 (0.93-1.08); PARTIAL THROMBOPLASTIN TIME 32.8 Seconds (23.7-30.8); PROTHROMBIN TIME 11.3 Seconds (9.9-11.8)
[2016-11-16 12:43] LABS: ALBUMIN 4.2 g/dL (3.0-4.8); ALT/SGPT 90 U/L (7-56); AST/SGOT 46 U/L (15-59); BLOOD UREA NITROGEN 14 mg/dL (7-21); CALCIUM 9.5 mg/dL (8.4-10.5); GFR AFRICAN-AMERICAN > 60; GFR NON-AFRICAN AMERICAN > 60
[2016-11-16 12:44] LABS: BASO # 0.01 K/mm3 (0.0-2.0); BASO % 0.2 % (0.0-3.0); EOS # 0.1 (0.0-0.7); GRAN # 4.92 (1.4-6.5); GRAN % 78.2 % (50.0-68.0); HEMOGLOBIN 14.1 gm/dL (14.0-18.0); LYMPH # 0.9 (1.2-3.4); LYMPH % 13.8 % (22.0-35.0); MEAN CELL VOLUME 80.3 fL (80.0-105.0); MEAN CORPUSCULAR HEMOGLOBIN 27.5 pg (25.0-35.0); MEAN CORPUSCULAR HGB CONC 34.2 g/dl (31.0-37.0); MEAN PLATELET VOLUME 10.2 fl (7.0-11.0); MONO # 0.4 (0.1-0.6); MONO % 6.8 % (1.0-6.0); PLATELET COUNT 218 10^3/uL (120.0-450.0); RBC 5.13 10^6/uL (3.5-6.1); RED CELL DISTRIBUTION WIDTH 12.3 % (11.5-14.5); WHITE BLOOD COUNT 6.3 10^3/ul (4.5-11.0)
[2016-11-16] MEDS ORDERED: Lidocaine 2% Inj (20ml) IJ STA (12:48)
[2016-11-16 13:39] VITALS: BP 128/82; PULSE 84; RESP 18; O2SAT 97
--- NOTE | 2016-11-16 13:40 | CP.PCM.PN ---
Subjective - Date & Time of Evaluation Date of Evaluation: 11/16/16 Time of Evaluation: 13:00 - Subjective Subjective: 41M with PMhx of diabetes and abscesses presents to the ED with 6x6cm non- fluctuant abscess 15cm sub-xiphoid. Has been causing pain over the last 3 days. Objective - Vital Signs/Intake and Output Vital Signs (last 24 hours): Temp Pulse Resp BP Pulse Ox 98.7 F 90 19 127/83 96 11/16/16 11:20 11/16/16 11:20 11/16/16 11:20 11/16/16 11:20 11/16/16 11:20 - Labs Labs: 11/16/16 12:05 11/16/16 12:05 PT 11.3 Seconds (9.9-11.8) 11/16/16 12:05 INR 1.05 (0.93-1.08) 11/16/16 12:05 APTT 32.8 Seconds (23.7-30.8) H 11/16/16 12:05 - Constitutional Appears: Non-toxic, No Acute Distress - Head Exam Head Exam: ATRAUMATIC - Eye Exam Eye Exam: EOMI - ENT Exam ENT Exam: Mucous Membranes Moist - Respiratory Exam Respiratory Exam: Clear to Ausculation Bilateral, NORMAL BREATHING PATTERN. absent: Accessory Muscle Use - Cardiovascular Exam Cardiovascular Exam: REGULAR RHYTHM, +S1, +S2 - GI/Abdominal Exam GI & Abdominal Exam: Soft, Mass, Normal Bowel Sounds Additional comments: 6x6cm abscess present on midline subxiphoid - Neurological Exam Neurological Exam: Normal Gait, Oriented x3 - Psychiatric Exam Psychiatric exam: Normal Affect, Normal Mood - Skin Skin Exam: Normal Color Assessment and Plan - Assessment and Plan (Free Text) Assessment: 41M 6x6 abscess on abdomen Plan: - bedside I&D - PO abx Patient positioned appropriately, 30cc 1% lidocaine without epinephrine was used as a local anesthetic. #10 blade scalpal used for crutiate incision. Additional local anesthetic injected into surrounding viable tissue prior to blunt dissection of loculated adhesions. Copius drainage of pus (culture obtained). Wound packed with iodoform gauze. Procedure tolerated without complications. Wound dressed with sterile 4x4 guaze and paper tape. see back in the ED tomorrow or Sunday for packing change. Follow up with Dr. Vail in the clinic in 1-2 weeks. d/w Dr. Yared Cerda PGY1
== END 2016-11-16 13:50 | disposition home or self-care (01) ==
LOC: ED 11:04
DX: L02.211 Cutaneous abscess of abdominal wall (principal); E11.9 Type 2 diabetes mellitus without complications